=== PATIENT | female | born 1930 | race Caucasian/White ===

== ENCOUNTER 2018-09-17 17:08 | Observation (INO) | payer MEDICARE, BC ==
[~2018-09-17] VITALS: Ht 154.9 cm; Wt 50.8 kg
--- NOTE | 2018-09-17 17:08 | NUR ---
PT TO ROOM VIA EMS STRETCHER.
[2018-09-17] MEDS ORDERED: PREDNISONE10 MG PO (17:27)
[2018-09-17] MEDS ORDERED: ZOLOFT50 MG PO (17:27)
[2018-09-17] MEDS ORDERED: BACLOFEN10 MG PO (17:27)
[2018-09-17] MEDS ORDERED: NEURONTIN100 MG PO (17:28)
[2018-09-17] MEDS ORDERED: XANAX1 MG PO (17:29)
[2018-09-17] MEDS ORDERED: TRAMADOL HCL50 MG PO (17:29)
[2018-09-17] MEDS ORDERED: LEVOTHYROXIN75 MCG PO (17:29)
[2018-09-17] MEDS ORDERED: ASPIRIN 8181 MG PO (17:29)
[2018-09-17] MEDS ORDERED: PERCOCET 5/325M1 TAB PO (17:30)
[2018-09-17 17:48] LABS: HEMOGLOBIN 10.3 g/dl (12.0-16.0); MEAN CELL VOLUME 97.8 fL CALC (80.0-100.0); MEAN CORPUSCULAR HGB 32.5 pG CALC (26.0-32.0); MEAN CORPUSCULAR HGB CONC 33.2 g/L CALC (32.0-36.0); NEUT# 4.5 thou/uL (2.00-7.15); RED BLOOD COUNT 3.17 mill/uL (4.20-5.60); RED CELL DISTRI WIDTH 13.7 % (11.5-15.5)
[2018-09-17 18:15] LABS: PROTHROMBIN TIME 10.5 SECONDS (9.0-12.5)
[2018-09-17 18:16] LABS: CREATININE 1.4 mg/dL (0.5-1.0); POTASSIUM 4.3 mmol/l (3.5-5.1)
[2018-09-17 18:23] LABS: URINE BILIRUBIN - DIPSTICK NEGATIVE (NEGATIVE); URINE BLOOD DIPSTICK TRACE-LYSED (NEGATIVE); URINE COLOR YELLOW; URINE GLUCOSE - DIPSTICK NEGATIVE (NEGATIVE); URINE KETONE NEGATIVE (NEGATIVE); URINE LEUK ESTERASE MODERATE (NEGATIVE); URINE NITRITE - DIPSTICK NEGATIVE (Negative); URINE PH 7.5 (4.5-8.0); URINE PROTEIN - DIPSTICK NEGATIVE (NEG-TRACE); URINE SPECIFIC GRAVITY <=1.005; URINE UROBILINOGEN - DIPSTICK 0.2 E.U./dL (0.2)
--- NOTE | 2018-09-17 18:36 | NUR ---
PT HAS BEEN TO CT AND BACK, APPEARS TREMULOUS, WHICH IS NORMAL FOR HER, PER DAUGHTER. DAUGHTER UPDATED ON FINDINGS, AWAITING FURTHER RESULTS.
[2018-09-17 18:55] LABS: URINE BACTERIA FEW hpf; URINE SQUAMOUS EPITHELIAL CELL FEW EPI/hpf (0-FEW)
--- NOTE | 2018-09-17 19:14 | NUR ---
PT AND DAUGHTER AWARE OF PENDING ADMISSION. PT REMAINS AT REST IN THE STRETCHER, NO DISTRESS NOTED. WICK IN PLACE.
[2018-09-17 19:45] VITALS: BP 185/74
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
--- NOTE | 2018-09-17 19:51 | NUR ---
PT TAKEN TO ROOM ICU-1 WITHOUT INCIDENT, ACCOMPANIED BY DAUGHTER. DAUGHTER STATES CARE RECEIVED WAS EXCELLENT, TO THANK EVERYONE FOR CARE PROVIDED.
[2018-09-17 23:46] VITALS: BP 150/98
--- NOTE | 2018-09-17 23:46 | NUR ---
PATIENT RESTING WITH EYES CLOSED. RESP EVEN AND UNLABORED. NO S/S OF DISTRES NOTED.
[2018-09-18] VITALS (7 sets, daily range): BP systolic 108–191; BP diastolic 54–77
--- NOTE | 2018-09-18 04:59 | NUR ---
PATIENT AWAKE AND RESTING IN BED. RESP EVEN AND UNLABORED. NO S/S OF DISTRESS NOTED. PATIENT ALERT TO PLACE ONLY AT THIS TIME. WHEN ASKED AND NAME PATIENT DOESN'T ANWSER QUESTION.
--- NOTE | 2018-09-18 08:00 | NUR ---
PT SITTING TO HIGH FOLWERS & REPOSITIONED IN BED FOR BREAKFAST. HEATED UP PTS FOOD.
--- NOTE | 2018-09-18 09:46 | NUR ---
PHARMACY CONTACTED TO RESCHEDULE PTS ZOLOFTS FOR QHS, PER PT REQUEST. PT UNSURE IF SHE TOOK THAT MED LAST NIGHT.
--- NOTE | 2018-09-18 09:55 | NUR ---
DAUGHTER CALLED, WITH [employer], FOR UPDATE. ADVISED SHE WONT BE IN UNTIL LATER. SHARED THAT PT DIDNT EAT A LOT OF BREAKFAST, DAUGHTER STATES SHE LOVES CEREAL. REQUESTED DIETARY BRING CEREAL FOR PT FOR LUNCH TODAY.
--- NOTE | 2018-09-18 10:26 | NUR ---
DR GUTIERREZ @BEDSIDE WITH PT.
[2018-09-18 11:40] LABS: TSH, 3RD GENERATION 1.81 uIU/mL (0.47 - 4.68)
--- NOTE | 2018-09-18 12:10 | NUR ---
PT SLEEPING AT THIS TIME. NO S/S DISTRESS. WILL CONTINUE TO MONITOR.
--- NOTE | 2018-09-18 12:22 | NUR ---
PT SITTING UP IN BED, VERY HAPPY TO BE EATING CINNAMON TOAST CRUNCH FOR LUNCH. TALKATIVE- HAS FAROESE ACCENT.
--- NOTE | 2018-09-18 15:30 | NUR ---
DAUGHTER/SON-IN-LAW @BEDSIDE. FAMILY UPDATED ON PTS STATUS & POC. FAMILY WOKE PT UP FROM NAP. PT STATED SHE HAD A DREAM ABOUT A BABY NAMED ZAKIA. DAUGHTER STATED THEY HAVE A DOG NAMED ZAKIA THAT IS FINE. PT STATING HER HEAD FEELS WEIRD. DAUGHTER & SON-IN-LAW REPEATEDLY TELLING ME SHE HAS A EDDY. FAMILY ASSURED SHE JUST WOKE UP AFTER RECVG PAIN MEDICATION. ASKED PT TO CLARIFY STATEMENT. PT STATES HER HEAD FEELS GROGGY. REASSURED PT & FAMILY THAT SHE RECVD STRONG PAIN MEDICINE.
--- NOTE | 2018-09-18 16:00 | NUR ---
CALLED TO ROOM BY FAMILY. DAUGHTER ASKED TO STEP OUTSIDE TO TALK ABOUT PT. I EXPRESSED CONCERN ABOUT THIS AND ENSURED DAUGHTER WE DONT KEEP ANY SECRETS FROM THE PT. DAUGHTER WANTED TO KNOW WHAT THE DR "REALLY SAID". ASSURED DAUGHTER AGAIN THAT SHE KNOWS WHAT I KNOW. THEN DAUGHTER SAID PT NEEDS HYDROCONE BC THE PERCOCET ISNT STRONG ENOUGH. TRIED TO EDUCATED DAUGHTER BUT DAUGHTER REPEATEDLY TALKED OVER THIS RN. I SMILED AND LEFT, WHILE DAUGHTER & HER TALKED ABOUT HOW RUDE I WAS.
--- NOTE | 2018-09-18 16:13 | NUR ---
FAXED VERBAL ORDER FOR APAP PRN FEVER TO . EXPLAINED MEDICATION CHOICES TO PT/FAMILY. NOW DAUGHTER IS CONCERNED THAT PT IS GOING THROUGH HER XANAX WITHDRAWAL. PER MED REC, PT TAKES 1MG XANAX DAILY. AWARE.
--- NOTE | 2018-09-18 18:00 | NUR ---
PT SITTING UP IN BED, EATING CEREAL. PT FREQUENTLY ASKING SAME QUESTIONS. REORIENTED NEEDED.
--- NOTE | 2018-09-18 18:34 | NUR ---
PUREWICK CHANGED. PERICARE COMPLETED.
--- NOTE | 2018-09-18 18:45 | NUR ---
REPORT FROM Chiki PERES RN. ASSUMED PT. CARE.
--- NOTE | 2018-09-18 19:45 | NUR ---
PT. FOUND AWAKE, ALERT, ORIENTED X 3. SKIN WARM AND DRY. AFEBRILE. CALL LIGHT WITHIN REACH. PT. DENIES COMPLAINTS AT THIS TIME OTHER THAN HER CHRONIC HEAD AND NECK PAIN THAT HAS BEEN ONGOING. ORIENTED TO PERSON ONLY. REORIENTED TO SITUATION. RESPS EVEN AND UNLABORED. MAE. [place]. NO NEURO DEFICITS NOTED OTHER THAN HER CONFUSION. BOWEL SOUNDS ACTIVE THROUGHOUT. DENIES ABD PAIN. LUNGS CTA. WILL CONTINUE TO MONITOR.
--- NOTE | 2018-09-18 22:47 | NUR ---
PUREWICK REPLACED AT THIS TIME AND PT. CLEANSED OF URINARY INCONTINENCE. PAD CHANGED. WILL CONTINUE TO REASSESS AND MONITOR.
[2018-09-19] VITALS: BP 163/81
--- NOTE | 2018-09-19 00:28 | NUR ---
REMAINS EASILY AROUSABLE TO LIGHT VERBAL STIMULI. RESPS REMAIN EVEN AND UNLABORED. VOICES NO COMPLAINTS OR NEEDS AT THIS TIME. CALL LIGHT REMAINS WITHIN REACH. WILL CONTINUE TO ASSESS.
--- NOTE | 2018-09-19 04:03 | NUR ---
PT. RESTING IN BED IN NO DISTRESS. CALL LIGHT REMAINS WITHIN REACH. RESPS REMAIN EVEN AND UNLABORED. BP/HR STABLE. WILL CONTINUE TO MONITOR.
[2018-09-19 04:29] VITALS: BP 146/66
--- NOTE | 2018-09-19 06:05 | NUR ---
PT. MEDICATED WITH AM MED AND PAIN MEDICATION. PT. REPORTS HER HEADACHE IS 6/10 AT THIS TIME. REPOSITIONED FOR COMFORT AND BLANKETS APPLIED AT THIS TIME. UPDATED ON AM BREAKFAST SCHEDULE. WILL CONTINUE TO MONITOR.
--- NOTE | 2018-09-19 07:45 | NUR ---
RECVD REPORT FROM GAYLE JIMÉNEZ AT START OF SHIFT.
--- NOTE | 2018-09-19 08:18 | NUR ---
PT SITTING UP IN BED, EATING CEREAL FOR BREAKFAST (REQUESTED BY PT)
--- NOTE | 2018-09-19 08:28 | NUR ---
PLACED CMP & CBC ORDERS PER RBVO FROM DR GUTIERREZ.
[2018-09-19 08:35] VITALS: BP 154/71
--- NOTE | 2018-09-19 08:45 | NUR ---
LAB @BEDSIDE FOR DRAW.
[2018-09-19 09:01] LABS: HEMATOCRIT 33.4 % (37.0-47.0); HEMOGLOBIN 10.6 g/dl (12.0-16.0); IMMATURE GRANULOCYTES 3.9 % (0.0-5.0); MEAN CELL VOLUME 101.5 fL CALC (80.0-100.0); MEAN CORPUSCULAR HGB 32.2 pG CALC (26.0-32.0); MEAN CORPUSCULAR HGB CONC 31.7 g/L CALC (32.0-36.0); NEUT# 4.51 thou/uL (2.00-7.15); RED BLOOD COUNT 3.29 mill/uL (4.20-5.60); RED CELL DISTRI WIDTH 13.7 % (11.5-15.5)
[2018-09-19 09:40] LABS: BILIRUBIN, TOTAL 0.5 mg/dL (0.0-1.4); CREATININE 1.2 mg/dL (0.5-1.0); POTASSIUM 4.3 mmol/l (3.5-5.1); TOTAL PROTEIN 7.1 g/dL (6.3-8.2)
--- NOTE | 2018-09-19 11:51 | NUR ---
PT ASSISTED UP TO BSC FOR BM. JESSIE REPLACED. PT DID NOT EAT LUNCH. FIGETY IN BED. A&O TO NAME & IN THE HOSPITAL BUT NOT YEAR & CITY/STATE; CONFUSED BUT HAPPY.
--- NOTE | 2018-09-19 11:54 | NUR ---
DR GUTIERREZ @BEDSIDE WITH PT.
--- NOTE | 2018-09-19 11:56 | NUR ---
CHRIS, DAUGHTER, CALLED TO CHECK IF MD HAS BEEN IN YET. SHE WOULD LIKE ME TO CALL HER BACK WHEN MD MAKES A DECISION.
[2018-09-19 12:00] VITALS: BP 172/68
--- NOTE | 2018-09-19 12:56 | NUR ---
GERA, CASE MANAGEMENT, @BEDSIDE WITH PT.
--- NOTE | 2018-09-19 14:03 | NUR ---
pt sitting up in bed, eating cereal. pt appears happy. purewick draining into canister. will continue to monitor.
--- NOTE | 2018-09-19 14:36 | NUR ---
DR GUTIERREZ CALLED PTS DAUGHTER. NO CONCERNS.
--- NOTE | 2018-09-19 14:56 | NUR ---
GRANDDAUGHTER @BEDSIDE. PT CONVERSINGW/OUT DISTRESS, CONFUSED, APPEARS HAPPY.
[2018-09-19 16:00] VITALS: BP 144/75
--- NOTE | 2018-09-19 17:20 | NUR ---
PT SITTING UP IN BED, EATING DINNER. NO NEEDS/CONCERNS AT THIS TIME. VSS.
--- NOTE | 2018-09-19 18:13 | NUR ---
PT CLEANED/BATHED, LINENS CHANGED AFTER BM IN BED.
--- NOTE | 2018-09-19 18:38 | NUR ---
PT UP TO BSC FOR BM. PT USED WALKER TO TRANSFER WITH UNSTEADY GAIT. ASSIST x1
--- NOTE | 2018-09-19 18:50 | NUR ---
REPORT FROM Chiki PERES RN. ASSUMED PT. CARE.
--- NOTE | 2018-09-19 19:20 | NUR ---
PT. FOUND RESTING IN BED IN NO DISTRESS. RESPS EVEN AND UNLABORED. LUNGS CTA. BOWEL SOUNDS ACTIVE THROUGHOUT. 1+ EDEMA NOTED TO LOWER EXT BILATERALLY. DISTIL PULSES INTACT THROUGHOUT. LUND. NO NEURO DEFICITS NOTED. ORIENTED TO PERSON AT THIS TIME, UNCHANGED FROM LAST NIGHT. PT. STATES HER PAIN IS MINIMAL AT THIS TIME. AMBIENT ROOM TEMPERATURE INCREASED PER PATIENT REQUEST. WATCHING TELEVISION IN NO DISTRESS. WILL CONTINUE TO MONITOR.
[2018-09-19 20:00] VITALS: BP 145/74
--- NOTE | 2018-09-19 21:13 | NUR ---
PT. MEDICATED PER PHYSICIAN ORDERS. MEDICATED FOR 6/10 PAIN TO NECK/HEAD. WARM BLANKET PROVIDED. WILL CONTINUE TO ASSESS.
--- NOTE | 2018-09-19 23:35 | NUR ---
PT. AWAKENS CONFUSED. ASKING "HOW DID I GET OUT HERE". ATTEMPTS TO REORIENT PATIENT THAT SHE HAS NOT GONE ANYWHERE ARE UNSUCCESSFUL. REMAINS ORIENTED TO PERSON ONLY. APPEARS ANXIOUS AT THIS TIME. WILL MEDICATE ORDERED.
[2018-09-20] VITALS (9 sets, daily range): BP systolic 137–203; BP diastolic 58–76
--- NOTE | 2018-09-20 00:05 | NUR ---
PT. REMAINS ANXIOUS AT THIS TIME. BP IS ELEVATED. MEDICATED PER PHYSICIAN ORDERS FOR ELEVATED BP AND ANXIETY/INABILITY TO SLEEP. TELEVISION TURNED ON TO HELP PATIENT RELAX SHE CONTINUES TO BE CONFUSED ABOUT WHERE SHE IS. CALL LIGHT REMAINS WITHIN REACH. WILL CONTINUE TO CLOSELY MONITOR.
--- NOTE | 2018-09-20 03:45 | NUR ---
PT. RESTING IN BED WITH EYES CLOSED. OCCASIONALLY MOANING AND WHEN ASKED WHAT IS WRONG SHE SAYS SHE IS TIRED. PT. ENCOURAGED TO GET SOME REST. CONTINUES TO MOAN AND GROAN, BUT DENY PAIN.
--- NOTE | 2018-09-20 06:45 | NUR ---
REPORT RECVD FROM GAYLE JIMÉNEZ AT START OF SHIFT.
--- NOTE | 2018-09-20 08:48 | NUR ---
PT RECAPING HER NIGHT. STATES SOMEHOW, SHE WOKE UP AND WAS OUTSIDE. SAME REPORT FROM SPOOL CARRIER, FAILED ATTEMPTS AT REORIENTATION. PT TELLS SAME STORY TO BOTH SHIFTS. PT TRYING TO GET OUT OF BED, BED ALARM SET. YESTERDAY, PT WAS CONCERNED WE THREW AWAY HER SISTERS HAND KNITTED SWEATER.
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
--- NOTE | 2018-09-20 12:39 | NUR ---
MD AWARE OF NEW ALLERGY TO PERCOCET, REQUESTED ALTERNATIVE. AWAITING ORDERS.
--- NOTE | 2018-09-20 12:45 | NUR ---
DAUGHTER CALLED FOR UPDATE, CONNECTED TO DR ROBERTS.
--- NOTE | 2018-09-20 14:07 | NUR ---
MARIE PT, AT BEDSIDE FOR CONSULT.
--- NOTE | 2018-09-20 14:22 | NUR ---
OT @BEDSIDE FOR CONSULT
--- NOTE | 2018-09-20 15:00 | NUR ---
PT SLEEPING IN BED. NO S/S OF DISTRESS. WILL CONTINUE TO MONITOR.
--- NOTE | 2018-09-20 15:13 | NUR ---
@BEDSIDE. PT REMAINS SLEEPING. NO S/S OF DISTRESS. WILL CONTINUE TO MONITOR.
--- NOTE | 2018-09-20 15:25 | NUR ---
DAUGHTER @BEDSIDE WITH PT.
--- NOTE | 2018-09-20 16:58 | NUR ---
MEDICATIONS REVIEWED WITH DAUGHTER & PT. DAUGHTER QUESTIONING ALL MEDICATIONS & POC. ASKED DAUGHTER IF SHE WANTED TO SPEAK WITH THE DR, SHE REFUSED, BUT PRECEDED TO ARGUE WITH THIS RN. ADVISED DAUGHTER I DID NOT WANT TO ARGUE WITH HER. DAUGHTER STATING SHE HAS NO IDEA WHAT'S GOING ON. REMINDED DAUGHTER THAT SHE HAS TALKED TO THE MD YESTERDAY & TODAY. STILL REFUSES TO SPEAK WITH MD NOW, BUT AGAIN CONTINUES TO WANT TO ARGUE. LEFT ROOM. DAUGHTER OVERHEARD ON SPEAKER PHONE WITH [employer].
--- NOTE | 2018-09-20 17:51 | NUR ---
PT ATE BOWL OF SPINACH THEN TORE INTO HER CEREAL FOR "A TREAT".
--- NOTE | 2018-09-20 18:28 | NUR ---
CEREAL REMOVED UNTIL PT ATE MORE OFF TRAY. PT ATE 75% TOTAL OF SPINACH, CHICKEN, & NOODLES. THEN PT STATED, SHE MIGHT WELL EAT HER CEREAL BC SHE ALREADY GOT IT OPEN.
--- NOTE | 2018-09-20 22:02 | NUR ---
ASSISTED TO BSC, UNSTEADY. URINE IS YELLOW, STRONG ODOR. SAFELY ASSISTED BACK TO BED. PATIENT NOW CONFUSED REGARDING WHERE SHE IS AT, WAS REORIENTED AND REASSURED. CALL LIGHT WITHIN REACH.
--- NOTE | 2018-09-20 23:22 | NUR ---
PATIENT AWAKE, ALERT AND ORIENTED TO HERSELF AND ONLY. PATIENT WAS REORIENTED. PATIENT HAS CONFUSED CONVERSATIONS. SPEAKS CLEARLY. ON ROOM AIR. AFEBRILE. PERRL, 3MM. ABDOMEN IS SOFT AND ACTIVE BS. CHRONIC NECK PAIN. SELF REPOSITIONS WITH CUEING. RADIAL AND PEDAL PULSES STRONG. NO EDEMA OBSERVED. SR ON TELE. INCONTINENT, PERINEAL CARE PERFORMED, PAIENT ENCOURAGED AND PARTICIPATED. ALL LINENS CHANGED. RFA 22 G IV STARTED, SALINE LOCKED. LFA IV REMOVED SAFELY. BUTTOCKS PINK. EDUCATED ON POC. EDUCATED PILE HEADER LIGHT SYSTEM, CALL LIGHT WITHIN REACH. WILL CONTINUE TO MONITOR.
[2018-09-21] VITALS (11 sets, daily range): BP systolic 105–171; BP diastolic 47–72
--- NOTE | 2018-09-21 00:30 | NUR ---
PATIENT IS AWAKE AND CALM. NO NEEDS AT THIS TIME. AFEBRILE. CALL LIGHT WITHIN REACH. WILL CONTINUE TO MONITOR.
--- NOTE | 2018-09-21 02:10 | NUR ---
PATIENT IS AWAKE, CONFUSED. NO NEEDS AT THIS TIME, SELF REPOSITIONS. ON ROOM AIR. BP 171/66, WILL MEDICATE. NO COMPLAINTS OF PAIN. CALL LIGHT WITHIN REACH.
--- NOTE | 2018-09-21 02:31 | NUR ---
APRESOLINE IV PRN GIVEN TO PATIENT FOR HIGH BP, WILL RECHECK BP.
--- NOTE | 2018-09-21 02:55 | NUR ---
BED ALARM ON AND PATIENT IS SITTING AT THE EDGE OF THE BED, STATES SHE IS GOING HOME, CONTINUES TO HAVE CONFUSED COVERSATIONS, "I WANNA SEE IF ANYBODY WANTS TO SING A HYMN OR SAY A SPEECH." PATIENT HAS BEEN REORIENTED. CALL LIGHT WITHIN REACH. BED LARM BACK ON.
--- NOTE | 2018-09-21 03:18 | NUR ---
PATIENT CONTINUES TO HAVE CONFUSED CONVERSATIONS," WHO WANTS TO PLAY THE ORGAN, ARE YOU ALRIGHT DOMINIQUE." PATIENT HAS BEEN REORINTED WITH UNSUCCESSFUL ATTEMPTS. BED ALARM BACK ON. CALL LIGHT WITHIN REACH.
--- NOTE | 2018-09-21 04:14 | NUR ---
PATIENT CONTINUES WITH CONFUSION, SHOWS LESS AGITATION AND IS NOT ATTEMPTING TO GET OUT OF BED. AFEBRILE. CALL LIGHT WITHIN REACH. REORIENTATION AND REASSURANCE NEEDED.
[2018-09-21 04:59] LABS: HEMATOCRIT 34.6 % (37.0-47.0); HEMOGLOBIN 11.4 g/dl (12.0-16.0); IMMATURE GRANULOCYTES 4.9 % (0.0-5.0); MEAN CELL VOLUME 98.3 fL CALC (80.0-100.0); MEAN CORPUSCULAR HGB 32.4 pG CALC (26.0-32.0); MEAN CORPUSCULAR HGB CONC 32.9 g/L CALC (32.0-36.0); NEUT# 5.99 thou/uL (2.00-7.15); RED BLOOD COUNT 3.52 mill/uL (4.20-5.60); RED CELL DISTRI WIDTH 14.1 % (11.5-15.5)
[2018-09-21 05:13] LABS: ALBUMIN 4.6 g/dL (3.2-5.0); BILIRUBIN, TOTAL 0.4 mg/dL (0.0-1.4); CREATININE 1.4 mg/dL (0.5-1.0); MAGNESIUM 2.3 mg/dL (1.6-2.3); POTASSIUM 4.5 mmol/l (3.5-5.1); TOTAL PROTEIN 7.7 g/dL (6.3-8.2)
--- NOTE | 2018-09-21 05:52 | NUR ---
ASSISTED PATIENT WITH REPOSITIONING. URINE IS CLEAR AND YELLOW. REMAINS CONFUSED, STARTED PULLING OFF HER IV SITE, SECURED IT AND IT IS FLUSHING PROPERLY. ON ROOM AIR. CALL LIGHT WITHIN REACH. BED ALARM ON.
--- NOTE | 2018-09-21 07:40 | NUR ---
pt awake in bed; no apparent distress noted; assessment completed at this time; pt alert to person only; very confused and hallucinating; pt introduces this radio news writer to two different people in the room (no one present but this radio news writer and pt); pt admits to neck pain and headache; will medicate; no n/v noted; resp even and unlabored; lungs clear bilat; skin color wnl; ra; hr reg; strong pulses; no edema noted; sr on monitor; abd soft with bs present; no bm noted per radio news writer; purewick intact with clear yellow urine; #22 in rw flushed and patent; no redness or edema noted at site; buttocks slightly red; tremors noted to upper extremities; plan of care/ am meds explained; bed alarm activated for pt safety; call light within reach; will continue to monitor
--- NOTE | 2018-09-21 08:00 | NUR ---
awake in bed; high miller's; eating cereal; no apparent distress noted; will continue to monitor
--- NOTE | 2018-09-21 09:10 | NUR ---
am meds explained and administered; pt offers no complaints; will continue to monitor
--- NOTE | 2018-09-21 09:37 | NUR ---
PT present at bedside
--- NOTE | 2018-09-21 10:00 | NUR ---
awake in bed; OT present at bedside; pt offers no complaints; cooperative with care; sr-st on monitor; iv intact; call light within reach; will continue to monitor
--- NOTE | 2018-09-21 10:05 | NUR ---
REPORT CALLED TO Ashley MARES RN; PT TO TRANSFER TO MED SURG 271
--- NOTE | 2018-09-21 10:33 | NUR ---
Pt seen this am for treatment. She was confused stated her daughter and where here, she was looking into other pt rooms for them while walking. She stated she has been talking to statues. AROM ex performed x 20 reps in bed. She moved supine to and from sit with min assist/SBA. Sit to stand with CGA/verbal cues for proper hand placement. Gait with RW 2x80' with CGA and re directing required. Pt urinated on commode, nursing aware. Gait belt and non skid socks in place during treatment. Pt systolic BP steady at 155 during treatment. 02 monitior was off and nursing aware. Pt resting in bed with call kim in reach and bed alarm on. AM PAC 6 click 15 SNF/IRF placement.
--- NOTE | 2018-09-21 10:40 | NUR ---
Dr Holguin present at bedside to assess pt and discuss plan of care
--- NOTE | 2018-09-21 10:58 | NUR ---
PT CAME FROM ICU VIA WHEELCHAIR. PT IS A&O X1. PT IS CONFUSED. PT IS TALKING TO DAUGHTER BUT SHE IS NOT IN ROOM. REORIENT PT. BED ALARM IN PLACE FOR SAFETY. SAFETY PRECAUTIONS REINFORCED AND CALL LIGHT IN REACH.
--- NOTE | 2018-09-21 11:00 | NUR ---
pt transferred to med surg tele room 271; bedside update provided to Ashley Block LPN;
--- NOTE | 2018-09-21 11:05 | NUR ---
Sol Rush called per functional tester typewriters; daughter updated that pt has been transferred to med surg room 271;
--- NOTE | 2018-09-21 13:07 | NUR ---
Pt seen today to improve ADLs. Pt participated in ADL training, pt was able to transfer from bed to recliner with stand pivot with Min A. Pt performed oral higiene requiring VC's to complete. Pt performed functional mobility using FWW requiring Min A to stand from recliner. Pt was able to wash her face and comb her hair at sink side with CGA. Performed AAROM exercises in shoulder flexion, elbow flexion, shoulder shrugs and scapular protraction/retraction. Pt was cooporative and tolerated well.
--- NOTE | 2018-09-21 13:35 | NUR ---
PT SETOFF THE BED ALARM. SHE IS SITTING IN THE SIDE OF THE BED. PT STATED LOOKING FOR DAUGHTER. REORIENT PT. ASSISTED PT BACK IN BED . BED ALARM IN PLACE.
--- NOTE | 2018-09-21 16:00 | NUR ---
PT SET OFF THE BED ALARM. PT STATED SHE WANTS TO GO TO THE BATHROOM. ASSISTED PT TO THE BSC. PT VOID YELLOW URINE. THEN PT ASKED WHAT TIME DOES SCHOOL START. REORIENT PT. PT BACK IN BED. BED ALARM IN PLACE.
--- NOTE | 2018-09-21 19:00 | NUR ---
REPORT RECEIVED FROM GAYLE HAMPTON. PT RESTING IN BED, ALERT TO SELF. RESPIRATIONS EVEN AND UNLABORED ON RA. BED ALARM ACTIVE FOR PT SAFETY. WILL CONTINUE TO MONITOR.
--- NOTE | 2018-09-21 20:30 | NUR ---
PT RESTING IN BED. ALERT TO SELF. RESPIRATIONS EVEN AND UNLABORED OR RA, LUNGS SOUND CLEAR. PULSE WEAK. TELE IN PLACE. PT DENIES ANY PAIN OR DISCOMFORT AT THIS TIME. SKINS INTACT. # 22 RFA APPEARS HEALTHY. BED ALARM ACTIVE FOR PT SAFETY. WILL CONTINUE TO MONITOR.
--- NOTE | 2018-09-21 23:30 | NUR ---
PT APPEARS TO BE SLEEPING. TELE IN PLACE. RESPIRATION ARE EVEN AND UNLABORED ON RA. BED ALARM ACTIVE FOR PT SAFETY. WILL CONTINUE TO MONITOR.
[2018-09-22] VITALS (7 sets, daily range): BP systolic 110–136; BP diastolic 54–74
--- NOTE | 2018-09-22 03:46 | NUR ---
PT RESTING IN BED WITH EYES CLOSED. RESPIRATIONS EVEN AND UNLABORED. NO S/S OF DISTRESS AT THIS TIME WILL CONTINUE TO MONITOR.
--- NOTE | 2018-09-22 08:05 | NUR ---
ASSESSMENT DONE. PT IS A&O X1 AND CONFUSED. PT IS DROWSY. TELE IN PLACE. #22 RFA THAT APPEARS HEALTHY. RESPS EVEN AND UNLABORED. PT HAS MILD/MODREATED TREMORS. PRUINE JUICE PROVIDED. CALL LIGHT IN REACH. BED ALARM IN PLACE FOR SAFETY.
--- NOTE | 2018-09-22 11:25 | NUR ---
PT IS SLEEPING IN BED WITH NO S/S OF DISTRESS NOTED. BED ALARM IN PLACE. CALL LIGHT IN REACH.
--- NOTE | 2018-09-22 15:47 | NUR ---
Attempted to see x 2 today, she was sleeping unable to wake enough to participate in treatment. Nursing aware.
--- NOTE | 2018-09-22 15:49 | NUR ---
PT IS DROWSY. PT ONLY ABLE TO STATED HER NAME AT THIS TIME. PT HAS TREMORS. NO S/S OF DISTRESS NOTED. BED ALARM IN PLACE. CALL LIGHT IN REACH.
--- NOTE | 2018-09-22 16:19 | NUR ---
PT IS CONFUSED. STATING THAT THE PILL JUMP OUT OF THE BED TO THE FLOOR. REORINET PT BUT PT STILL STATING PILL JUMP. JUICE PROVIDED. BED ALARM IN PLACE.
--- NOTE | 2018-09-22 19:33 | NUR ---
REPORT FROM BERTA ARAUJO. PT SITTING UP IN BED. ALERT TO SELF, CONFUSION NOTED. ATTEMPTED TO REORIENTED, NOT EFFECTIVE. IV SITE APPEARS HEALTHY. CLOTHING PATTERN PREPARER IN PLACE. PT DENIES ANY PAIN. NO APPARENT DISTRESS NOTED. CALL LIGHT WITHIN REACH AND BED ALARM FOR SAFETY.
--- NOTE | 2018-09-22 20:21 | NUR ---
PT FAMILY IN ROOM AT THIS TIME. PT SLEEPING ONLY RESPONSIVE TO PAINFUL STIMULI. HIGH SCHOOL HVAC R INSTRUCTOR APPLIED PRESSURE TO TOE, PT JUMPED AND SHOUTED. PT STILL NOT OPENING EYES OR VERBALIZING ANYTHING. VS OBTAINED 110/61, 70, 98.8, 18, 96% RA. PUPILS REACTIVE. SPOKE WITH FAMILY THEY STATES PT HAS DONE THIS PREVIOUSLY AND THEY BELIEVE IT IS DUE TO A DECREASED DOSE OF XANAX PT IS CURRENTLY TAKING. GANTRY CRANE OPERATOR PHYSICIAN NOTIFIED OF PT CONDITION AND FAMILIES CONCERNS. NO NEW ORDERS AT THIS TIME. WILL CONTINUE TO MONITOR.
--- NOTE | 2018-09-22 21:03 | NUR ---
PT NOW MORE AWAKE AND VERBALIZED PAIN IN BLE AND HEAD. PO APAP GIVEN AT THIS TIME. REPOSITIONED FOR COMFORT. WILL CONTINUE TO MONITOR.
--- NOTE | 2018-09-22 23:23 | NUR ---
PT RESTING IN BED WITH EYES CLOSED. NO DISTRESS NOTED. RESPIRATIONS EVEN AND UNLABORED. FOUNDRY PATTERNMAKER IN PLACE. CALL LIGHT WITHIN REACH. WILL CONTINUE TO MONITOR.
[2018-09-23 03:44] VITALS: BP 169/73
--- NOTE | 2018-09-23 03:52 | NUR ---
PT RESTING IN BED WITH EYES CLOSED. NO S/S OF DISTRESS NOTED. WAKES EASILY TO STIMULI. CALL LIGHT WITHIN REACH AND BED ALARM FOR SAFETY. WILL CONTINUE TO MONITOR.
--- NOTE | 2018-09-23 07:12 | NUR ---
REPORT RECEIVED FROM GALE GARCIA. PT SUPINE IN BED. COOL WASHCLOTH TO FOREHEAD R/T HEADACHE. PT ALERT AND RESPONSIVE. FALL PRECAUTIONS REINFORCED. SITTER AT BEDSIDE FOR SAFETY. BED ALARM SET. CALL LIGHT REVIEWED AND IN REACH.
[2018-09-23 08:21] VITALS: BP 141/67
[2018-09-23 11:06] VITALS: BP 144/71
--- NOTE | 2018-09-23 11:17 | NUR ---
Pt more responsive this am. She c/o pain all over. LE ROM ex AA x 10 reps. She moved supine to sit with mod assist and max to return supine. Pt sitting balance was poor with pt leaning towards R and therapist needing to support her. MD and nurse in during treatment. Pt left resting in bed with call kim in reach and sitter monitioring from [address]. AM PAC 6 click score 9 LTAC.
--- NOTE | 2018-09-23 11:33 | NUR ---
DR. ROBERTS IN TO SEE PT. PHYSICAL THERAPY AT BEDSIDE. PT. SITTING ON SIDE OF BED. PT. CRYING, SHAKING. REPORTS SEVERE HEADACHE. FLUSHED, DIAPHORESIS NOTED. GIVE XANAX 1 MG PO NOW PER DR. ROBERTS.
--- NOTE | 2018-09-23 15:36 | NUR ---
PT'S FAMILY AT BEDSIDE. DISCHARGE HOME IN AM W/ HH AGREED UPON BY ALL PARTIES.
[2018-09-23 15:44] VITALS: BP 116/52
--- NOTE | 2018-09-23 15:46 | NUR ---
Arrived with pt sleeping and daughter and granddaughter present. Daughter verbalized pt had just taken medication that made her drowzy and would not be able to activly participate in therapy however would like her to receive PROM. Performed PROM to harmeet shoulders in flexion, abduction, elbow flexion/extension, wrist flexion/extension, digit flexion/extension x15 each.
--- NOTE | 2018-09-23 16:57 | NUR ---
pt sleeping at this time. bed alarm set for safety.
--- NOTE | 2018-09-23 19:14 | NUR ---
REPORT FROM VIKI ARAUJO. PT RESTING IN BED. ALERT AND ORIENTED. PT STATES FEELING BETTER. DENIES ANY PAIN OR DISCOMFORT. IV SITE APPEARS HEALTHY. DISCUSSED POC. PT VERBLIZED UNDERSTANDING. CALL LIGHT WITHIN REACH AND BED ALARM FOR SAFETY. WILL CONTINUE TO MONITOR.
[2018-09-23 19:16] VITALS: BP 130/80
--- NOTE | 2018-09-23 22:46 | NUR ---
ASSISTED PT TO BSC. PT VOIDED 200ML CLEAR YELLOW URINE. ASSISTED BACK TO BED. CALL LIGHT WITHIN REACH. PT DENIES ANY CURRENT WANTS OR NEEDS. WILL CONTINUE TO MONITOR.
[2018-09-23 23:54] VITALS: BP 105/51
--- NOTE | 2018-09-24 02:40 | NUR ---
PT RESTING IN BED. WAKES EASILY. DENIES ANY PAIN OR DISCOMFORT. NO DISTRESS NOTED. CALL LIGHT WITHIN REACH. WILL CONTINUE TO MONITOR.
[2018-09-24 04:10] VITALS: BP 127/52
--- NOTE | 2018-09-24 06:00 | NUR ---
ASSISTED PT TO BSC. PT VOIDED 450ML CLEAR YELLOW URINE. ASSISTED BACK TO BED. PT DENIES ANY PAIN OR DISCOMFORT. CALL LIGHT WITHIN REACH AND BED ALARM FOR SAFETY. WILL CONTINUE TO MONITOR.
[2018-09-24 07:57] VITALS: BP 138/49
--- NOTE | 2018-09-24 08:00 | NUR ---
ASSESSMENT DONE PT IS A&O X2 BUT CONFUSED AT TIMES. TELE IN PLACE. PT DENIES PAIN AT THIS TIME. RESPS EVEN AND UNLABORED. PT DENIES NEEDS AT THIS TIME. CALL LIGHT IN REACH AND BED ALARM IN PLACE.
--- NOTE | 2018-09-24 08:00 | NUR ---
ASSESSMENT DONE. PT A&O X2. PT ORIENTED TO PERSON AND TIME BUT FORGETFUL AT TIMES. RESPS UNLABORED AND EVEN. BED ALARM IN PLACE. PT REPORTS NO OTHER NEEDS AT THIS TIME. CALL LIGHT WITHIN REACH.
[2018-09-24 10:50] VITALS: BP 124/83
--- NOTE | 2018-09-24 11:30 | NUR ---
Discharge instructions given. Patient verbalizes understanding of same. Discharged in stable condition via Wheelchair to Home with family. All belongings sent with pt.
[2018-09-24 15:05] VITALS: BP 154/65
== END 2018-09-24 11:30 | disposition home health service (06) ==
LOC: ED 17:08 → ED-I 18:50 → ED 19:08 → ICU 19:09 → MS2 09-21 11:13
PROVIDERS: Family Medicine; Internal Medicine Nephrology; ADMIT Internal Medicine; ATTEND Internal Medicine
DX: R41.82 Altered mental status, unspecified (principal); F43.29 Adjustment disorder with other symptoms; I10 Essential (primary) hypertension; E03.9 Hypothyroidism, unspecified; R51 Headache; G89.29 Other chronic pain; G25.0 Essential tremor; K59.00 Constipation, unspecified; Z79.52 Long term (current) use of systemic steroids
CPT/HCPCS: Q9967

== ENCOUNTER 2018-09-28 10:21 | Inpatient (IN) | payer BC, MEDICARE ==
[~2018-09-28] VITALS: Ht 154.9 cm; Wt 52.0 kg
[~2018-09-28 10:21] MED LIST: ASPIRIN 8181 MG PO; BACLOFEN10 MG PO; LEVOTHYROXIN75 MCG PO; NEURONTIN100 MG PO; PERCOCET 5/325M1 TAB PO; PREDNISONE10 MG PO; TRAMADOL HCL50 MG PO; XANAX1 MG PO; ZOLOFT50 MG PO
[2018-09-28 10:47] LABS: HEMATOCRIT 30.5 % (37.0-47.0); HEMOGLOBIN 9.9 g/dl (12.0-16.0); IMMATURE GRANULOCYTES 1.7 % (0.0-5.0); MEAN CELL VOLUME 100.7 fL CALC (80.0-100.0); MEAN CORPUSCULAR HGB 32.7 pG CALC (26.0-32.0); MEAN CORPUSCULAR HGB CONC 32.5 g/L CALC (32.0-36.0); NEUT# 3.56 thou/uL (2.00-7.15); RED BLOOD COUNT 3.03 mill/uL (4.20-5.60); RED CELL DISTRI WIDTH 13.7 % (11.5-15.5)
[2018-09-28 11:04] LABS: ALBUMIN 4.3 g/dL (3.2-5.0); ALKALINE PHOSPHATASE 64 u/l (38-126); ANION GAP 16 (6-22 (CALC)); BILIRUBIN, TOTAL 0.3 mg/dL (0.0-1.4); BUN 32 mg/dL (8-23); BUN/CREATININE RATIO 24 (12-20 (CALC)); CARBON DIOXIDE 26 mmol/l (22-30); CHLORIDE 106 mmol/l (95-108); CREATININE 1.3 mg/dL (0.5-1.0); GFR 39 ML/MIN (>=60 (CALC)); GFR FOR AFR.AMER. 47 ML/MIN (>=60 (CALC)); LIPASE 64 u/l (23-300); POTASSIUM 4.9 mmol/l (3.5-5.1); SGOT/AST 25 u/l (9-36); SODIUM 143 mmol/l (137-146); TOTAL PROTEIN 7.4 g/dL (6.3-8.2)
[2018-09-28 12:37] LABS: URINE BILIRUBIN - DIPSTICK NEGATIVE (NEGATIVE); URINE BLOOD DIPSTICK NEGATIVE (NEGATIVE); URINE COLOR YELLOW; URINE GLUCOSE - DIPSTICK NEGATIVE (NEGATIVE); URINE KETONE NEGATIVE (NEGATIVE); URINE LEUK ESTERASE NEGATIVE (NEGATIVE); URINE NITRITE - DIPSTICK NEGATIVE (Negative); URINE PROTEIN - DIPSTICK NEGATIVE (NEG-TRACE); URINE UROBILINOGEN - DIPSTICK 0.2 E.U./dL (0.2)
[2018-09-28 12:40] LABS: BARBITURATES NEGATIVE (NEGATIVE); COCAINE NEGATIVE (NEGATIVE); METHADONE NEGATIVE (NEGATIVE); OXCYCODONE NEGATIVE (NEGATIVE); TETRAHYDROCANNABIONOL NEGATIVE (NEGATIVE); TRICYLIC ANTIDEPRESSANTS NEGATIVE (NEGATIVE)
[2018-09-28 15:06] VITALS: BP 132/56
[2018-09-28 19:44] VITALS: BP 104/50
[2018-09-28 20:20] VITALS: BP 131/68
[2018-09-28] MEDS ORDERED: XANAX0.5 MG PO (20:32)
[2018-09-29 00:20] VITALS: BP 118/68
[2018-09-29 04:13] VITALS: BP 128/60
[2018-09-29 05:22] LABS: HEMATOCRIT 29.1 % (37.0-47.0); HEMOGLOBIN 9.5 g/dl (12.0-16.0); MEAN CORPUSCULAR HGB 32.6 pG CALC (26.0-32.0); MEAN CORPUSCULAR HGB CONC 32.6 g/L CALC (32.0-36.0); NEUT# 2.35 thou/uL (2.00-7.15); RED BLOOD COUNT 2.91 mill/uL (4.20-5.60); RED CELL DISTRI WIDTH 13.6 % (11.5-15.5)
[2018-09-29 05:38] LABS: ALBUMIN 3.8 g/dL (3.2-5.0); BILIRUBIN, TOTAL 0.4 mg/dL (0.0-1.4); CREATININE 1.5 mg/dL (0.5-1.0); POTASSIUM 4.5 mmol/l (3.5-5.1); TOTAL PROTEIN 6.5 g/dL (6.3-8.2)
[2018-09-29 09:15] VITALS: BP 155/56
[2018-09-29 10:45] VITALS: BP 129/56
[2018-09-29 16:01] VITALS: BP 148/71
[2018-09-29 19:06] VITALS: BP 145/60
[2018-09-30 00:08] VITALS: BP 138/61
[2018-09-30 04:36] VITALS: BP 141/70
[2018-09-30 05:02] LABS: HEMOGLOBIN 8.9 g/dl (12.0-16.0); MEAN CELL VOLUME 101.1 fL CALC (80.0-100.0); MEAN CORPUSCULAR HGB 32.1 pG CALC (26.0-32.0); MEAN CORPUSCULAR HGB CONC 31.8 g/L CALC (32.0-36.0); NEUT# 2.09 thou/uL (2.00-7.15); RED BLOOD COUNT 2.77 mill/uL (4.20-5.60)
[2018-09-30 05:19] LABS: ALBUMIN 3.5 g/dL (3.2-5.0); BILIRUBIN, TOTAL 0.4 mg/dL (0.0-1.4); CREATININE 1.5 mg/dL (0.5-1.0); POTASSIUM 4.8 mmol/l (3.5-5.1); TOTAL PROTEIN 6.2 g/dL (6.3-8.2)
[2018-09-30 09:07] VITALS: BP 120/57
[2018-09-30 10:00] VITALS: BP 121/61
[2018-09-30 14:59] VITALS: BP 142/56
[2018-09-30 18:56] VITALS: BP 137/66
[2018-10-01 00:06] VITALS: BP 128/70
[2018-10-01 04:23] VITALS: BP 122/69
[2018-10-01 05:41] LABS: HEMATOCRIT 28.3 % (37.0-47.0); IMMATURE GRANULOCYTES 2.3 % (0.0-5.0); MEAN CELL VOLUME 102.2 fL CALC (80.0-100.0); MEAN CORPUSCULAR HGB 32.5 pG CALC (26.0-32.0); MEAN CORPUSCULAR HGB CONC 31.8 g/L CALC (32.0-36.0); NEUT# 2.03 thou/uL (2.00-7.15); RED BLOOD COUNT 2.77 mill/uL (4.20-5.60); RED CELL DISTRI WIDTH 13.8 % (11.5-15.5)
[2018-10-01 06:11] LABS: ALBUMIN 3.6 g/dL (3.2-5.0); BILIRUBIN, TOTAL 0.4 mg/dL (0.0-1.4); CREATININE 1.4 mg/dL (0.5-1.0); POTASSIUM 4.8 mmol/l (3.5-5.1); TOTAL PROTEIN 6.4 g/dL (6.3-8.2)
[2018-10-01 07:30] VITALS: BP 117/46
[2018-10-01 11:20] VITALS: BP 91/49
[2018-10-01 15:22] VITALS: BP 128/64
[2018-10-01 19:25] VITALS: BP 131/72
[2018-10-02] VITALS: BP 122/39
[2018-10-02 00:39] VITALS: BP 112/50
[2018-10-02 04:04] VITALS: BP 138/57
[2018-10-02 08:23] VITALS: BP 117/62
[2018-10-02 10:55] VITALS: BP 113/63
[2018-10-02] MEDS ORDERED: TRAMADOL HCL50 MG PO (12:49)
[2018-10-02] MEDS ORDERED: XANAX1 MG PO (12:50)
[2018-10-02] MEDS ORDERED: XANAX0.5 MG PO (12:51)
== END 2018-10-02 14:30 | DRG 897 ==
LOC: ED 10:21 → ED-I 12:39 → ED 12:53 → MS2 12:54
PROVIDERS: Family Medicine; ADMIT Internal Medicine Nephrology; ATTEND Internal Medicine Nephrology
DX: F13.239 Sedative, hypnotic or anxiolytic dependence with withdrawal, unspecified (principal); I67.82 Cerebral ischemia; F11.23 Opioid dependence with withdrawal; F01.50 Vascular dementia, unspecified severity, without behavioral disturbance, psychotic disturbance, mood disturbance, and anxiety; F41.9 Anxiety disorder, unspecified; F32.9 Major depressive disorder, single episode, unspecified; I12.9 Hypertensive chronic kidney disease with stage 1 through stage 4 chronic kidney disease, or unspecified chronic kidney disease; N18.3 Chronic kidney disease, stage 3 (moderate); G89.29 Other chronic pain; E03.9 Hypothyroidism, unspecified; D63.1 Anemia in chronic kidney disease; M62.81 Muscle weakness (generalized); R40.2422 Glasgow coma scale score 9-12, at arrival to emergency department; Z79.899 Other long term (current) drug therapy
CPT/HCPCS: G0378; J1650

== ENCOUNTER 2019-04-05 10:05 | Emergency (ER) | payer MEDICARE ==
[~2019-04-05] VITALS: Ht 154.9 cm; Wt 50.0 kg
[~2019-04-05 10:05] MED LIST changes: +XANAX0.5 MG PO
[2019-04-05] MEDS ORDERED: CYCLOBENZAPR5 MG PO (11:05)
[2019-04-05] MEDS ORDERED: MIRTAZAPINE15 MG PO (11:05)
[2019-04-05 11:23] LABS: HEMATOCRIT 29.9 % (37.0-47.0); HEMOGLOBIN 9.8 g/dl (12.0-16.0); IMMATURE GRANULOCYTES 0.2 % (0.0-5.0); MEAN CELL VOLUME 101.7 fL CALC (80.0-100.0); MEAN CORPUSCULAR HGB 33.3 pG CALC (26.0-32.0); MEAN CORPUSCULAR HGB CONC 32.8 g/L CALC (32.0-36.0); NEUT# 5.43 thou/uL (2.00-7.15); RED BLOOD COUNT 2.94 mill/uL (4.20-5.60); RED CELL DISTRI WIDTH 13.5 % (11.5-15.5)
[2019-04-05 11:45] LABS: CREATININE 1.6 mg/dL (0.5-1.0); POTASSIUM 4.6 mmol/l (3.5-5.1)
[2019-04-05 13:51] VITALS: BP 138/61
== END 2019-04-05 16:05 ==
LOC: ED 10:05 → ED-I 10:23 → ED 16:05
PROVIDERS: Family Medicine
DX: R00.1 Bradycardia, unspecified (principal); M25.512 Pain in left shoulder; I10 Essential (primary) hypertension

== ENCOUNTER 2020-05-20 13:31 | Emergency (ER) | payer MEDICARE, BC ==
[~2020-05-20] VITALS: Ht 154.9 cm; Wt 59.1 kg
[~2020-05-20 13:31] MED LIST changes: +CYCLOBENZAPR5 MG PO; +MIRTAZAPINE15 MG PO
[2020-05-20 14:13] LABS: HEMATOCRIT 28.2 % (37.0-47.0); HEMOGLOBIN 8.9 g/dl (12.0-16.0); IMMATURE GRANULOCYTES 3.4 % (0.0-5.0); MEAN CORPUSCULAR HGB 35.2 pG CALC (26.0-32.0); MEAN CORPUSCULAR HGB CONC 31.6 g/dL CAL (32.0-36.0); NEUT# 4.38 thou/uL (2.00-7.15); RED BLOOD COUNT 2.53 mill/uL (4.20-5.60); RED CELL DISTRI WIDTH 13.2 % (11.5-15.5)
[2020-05-20 14:16] LABS: MEAN CELL VOLUME 111.5 fL CALC (80.0-100.0)
[2020-05-20] MEDS ORDERED: GABAPENTIN100 MG PO (14:16)
[2020-05-20] MEDS ORDERED: MIRTAZAPINE15 MG PO (14:18)
[2020-05-20] MEDS ORDERED: FISH OIL1000 MG PO (14:22)
[2020-05-20] MEDS ORDERED: ASPIRIN ENTERIC81 MG PO (14:22)
[2020-05-20] MEDS ORDERED: GNP RED YEAST600 MG PO (14:23)
[2020-05-20] MEDS ORDERED: VITAMIN D31000 UNI1 PO (14:24)
[2020-05-20] MEDS ORDERED: CALCIUM600 M1 PO (14:24)
[2020-05-20] MEDS ORDERED: DOCUSATE SODIU100 MG PO (14:25)
[2020-05-20] MEDS ORDERED: MULTI VIT PO (14:25)
[2020-05-20] MEDS ORDERED: FERROUS GLUC PO (14:26)
[2020-05-20] MEDS ORDERED: VITAMIN B CO PO (14:26)
[2020-05-20 14:28] LABS: ALKALINE PHOSPHATASE 57 u/l (38-126); ANION GAP 13 (6-22 (CALC)); BILIRUBIN, TOTAL 0.3 mg/dL (0.0-1.4); BUN 53 mg/dL (8-23); BUN/CREATININE RATIO 27 (12-20 (CALC)); CARBON DIOXIDE 25 mmol/l (22-30); CHLORIDE 106 mmol/l (95-108); CREATININE 1.9 mg/dL (0.5-1.0); GFR 25 ML/MIN (>=60 (CALC)); GFR FOR AFR.AMER. 30 ML/MIN (>=60 (CALC)); LIPASE 54 u/l (23-300); MAGNESIUM 2.3 mg/dL (1.6-2.3); POTASSIUM 4.5 mmol/l (3.5-5.1); SGOT/AST 29 u/l (9-36); SODIUM 140 mmol/l (137-146)
[2020-05-20 14:29] LABS: ACT PARTIAL THROMBO TIME 22.4 SECONDS (20.0-32.5); PROTHROMBIN TIME 9.8 SECONDS (9.0-12.5)
[2020-05-20 14:36] LABS: ALBUMIN 4.5 g/dL (3.2-5.0); TOTAL PROTEIN 8.2 g/dL (6.3-8.2)
[2020-05-20 15:33] LABS: URINE BILIRUBIN - DIPSTICK NEGATIVE (NEGATIVE); URINE BLOOD DIPSTICK NEGATIVE (NEGATIVE); URINE COLOR YELLOW; URINE GLUCOSE - DIPSTICK NEGATIVE (NEGATIVE); URINE KETONE NEGATIVE (NEGATIVE); URINE LEUK ESTERASE NEGATIVE (NEGATIVE); URINE NITRITE - DIPSTICK NEGATIVE (Negative); URINE PH 6.5 (4.5-8.0); URINE PROTEIN - DIPSTICK NEGATIVE (NEG-TRACE); URINE SPECIFIC GRAVITY 1.015; URINE UROBILINOGEN - DIPSTICK 0.2 E.U./dL (0.2)
[2020-05-20] MEDS ORDERED: DIFLUCAN150 MG PO (16:07)
[2020-05-20 16:14] VITALS: BP 159/127
== END 2020-05-20 16:31 | disposition home or self-care (01) ==
LOC: ED 13:31
DX: R41.82 Altered mental status, unspecified (principal); B37.3 Candidiasis of vulva and vagina; I10 Essential (primary) hypertension; Z20.822 Contact with and (suspected) exposure to COVID-19